=== PATIENT | male | born 1975 | race Caucasian/White ===

== ENCOUNTER 2016-09-22 11:50 | Emergency (ER) | payer MEDICARE ==
--- NOTE | ~2016-09-22 | ER ---
PATIENT'S NAME: GORAN [facility]PH [facility] AGE: 41 Y [address] ROOM: [place] [id number] LOCATION: ED ADMIT DATE: 09/22/2016 ER/Outpatient Report DISCHARGE DATE: 09/22/2016 FAMILY PHYSICIAN: Celestino Gr MD ATTENDING PHYSICIAN: Colleen Baron Time of Arrival: 1150 hours. Time of Evaluation: 1205 hours. CHIEF COMPLAINT: Near syncopal episodes when standing. HISTORY OF PRESENT ILLNESS: This is a 41-year-old male who presents to the ER, who states he has been having some near syncopal episodes for the past month or so. The patient states that when he stands up, he feels lightheaded and he feels like he will pass out at times. He has fallen down a few times, but he states he has never hit his head and he recalls all of the events fine. He states that he had been smoking marijuana and drinking alcohol, but he quit those last month; and states he started smoking some methamphetamines this month and ever since he started doing that he has had these episodes and he wants to figure out why he is having these episodes. He states he did smoke methamphetamines last night and he states the reason why he smokes is to put him in a "relaxed state." He denies any fever or chills. No cough. No shortness of breath. No chest pain. No lightheadedness. He states he had a normal stool this morning. He states he has a visit to see Dr. Gr on Monday. The patient states that he has been taking all of his seizure medications like he is supposed to. ALLERGIES: NO KNOWN ALLERGIES. MEDICATIONS: Please see medication list nurse's notes. PAST MEDICAL HISTORY: Epilepsy. SOCIAL HISTORY: He has been smoking methamphetamines this last month. He states he quit marijuana and alcohol this last month. REVIEW OF SYSTEMS: All systems reviewed and were negative with the exception of those discussed in the HPI. PATIENT'S NAME: GORAN [facility]SEPH [facility] AGE: 41 Y [address] ROOM: [place] [address] LOCATION: ED ADMIT DATE: 09/22/2016 ER/Outpatient Report DISCHARGE DATE: 09/22/2016 FAMILY PHYSICIAN: Celestino Gr MD ATTENDING PHYSICIAN: Colleen Baron PHYSICAL EXAMINATION: VITAL SIGNS: Weight 119 kg taken, blood pressure is 114/68, pulse 78, respirations 20, temperature 97 degrees tympanically, and saturations 96% on room air. Margarita Coma Score is 15. GENERAL: Alert, calm, well-developed male, in no acute distress. HEENT: Head: Normocephalic. Eyes: Pupils are and reactive to light. He does display moist mucous membranes. LUNGS: Clear to auscultation bilaterally. HEART: Regular rate and rhythm. ABDOMEN: Soft. It is nontender. He has good bowel sounds throughout. EXTREMITIES: No clubbing or cyanosis. He does have full range of motion of all limbs. MUSCULOSKELETAL: He has no tenderness with palpation over his cervical, thoracic, or lumbar spine. SKIN: Warm, dry, and intact. LABORATORY DATA AND X-RAYS: CBC: White count is 8.2, hemoglobin is 13.2, platelets are 348, and ANC is 4.6. CMS: Glucose is 104 and calcium 8.3, otherwise unremarkable. Urinalysis was negative for any infection. He is positive for benzodiazepine and positive for amphetamines. CT scan of his head was negative and reported by Radiology. IMPRESSION: 1. Near syncopal episodes. 2. Methamphetamine abuse. ASSESSMENT AND PLAN: We did monitor the patient here for quite some time. He remained comfortable during his entire stay. We did give him some IV fluids while he was here. I advised him to not smoke methamphetamines, not to drink alcohol or smoke marijuana. He needs to continue to push fluids, monitor his symptoms, and he needs to follow up with his primary care physician on Monday. The patient understands and agrees with care. BARNEY MATTHEWS PA-C FOR MD NESSA SEXTON/keith /[id number] d: t: 09/28/16 1359, OUTPATIENT REPORT
[~2016-09-22 11:50] MED LIST: CYMBALTA60 MG PO; KEPPRA1000 MG PO; KLONOPIN1 M1 PO; LAMICTAL XR200 MG PO; MYRBETRIQ50 MG PO; PROTONIX40 MG PO; RISPERDAL4 MG PO; TRANXENE T-TA3.75 MG PO; TYLENOL325 MG PO; VIMPAT200 MG PO
[2016-09-22 13:08] LABS: BASOPHIL # 0.1 K/uL (0.0-0.2); BASOPHIL % 0.7 %; EOSINOPHIL # 0.5 K/uL (0.0-0.5); EOSINOPHIL % 5.6 %; HEMATOCRIT 38.3 % (37.0-53.0); HEMOGLOBIN 13.2 g/dL (12.0-17.0); IMMATURE GRANULOCYTE % 0.1 %; LYMPHOCYTE # 2.4 K/uL (0.8-4.0); LYMPHOCYTE % 28.7 %; MCH 29.5 pg (27.0-34.0); MCHC 34.5 gm/dL (32.0-36.5); MCV 85.5 fl (83.0-98.0); MONOCYTE # 0.8 K/uL (0.0-1.0); MONOCYTE % 9.2 %; MPV 9.4 fl (9.4-12.4); NEUTROPHIL # (ANC) 4.6 K/uL (1.4-9.0); NEUTROPHIL % 55.7 %; NRBC % 0 /100WBC (0-0.00); PLATELET COUNT 348 K/uL (150-450); RBC 4.48 M/uL (4.00-6.00); RDW-CV 13.2 % (11.9-14.6); WBC 8.2 K/uL (4.0-11.0)
[2016-09-22 13:21] LABS: ALBUMIN 3.5 gm/dL (3.5-5.0); ALK PHOS 99 IU/L (33-138); ALT 22 IU/L (12-78); ANION GAP 10.7 (10.0-19.0); AST 16 IU/L (10-40); BLOOD UREA NITROGEN 9 mg/dL (6-24); CALCIUM 8.3 mg/dL (8.5-10.5); CHLORIDE 109 mMol/L (96-110); CO2 25 mMol/L (22-32); CREATININE 1.1 mg/dL (0.6-1.3); ESTIMATED GFR (MDRD EQUATION) > 60; POTASSIUM 3.7 mMol/L (3.7-5.1); SODIUM 141 mMol/L (135-145); TOTAL BILIRUBIN 0.6 mg/dL (0.0-1.5); TOTAL PROTEIN 7.2 g/dL (6.0-8.4)
[2016-09-22 14:00] LABS: BLOOD URINE NEGATIVE /UL (NEGATIVE); COLOR URINE YELLOW (YELLOW); GLUCOSE URINE NEGATIVE (NEGATIVE); KETONE URINE NEGATIVE (NEGATIVE); LEUKOCYTES URINE 25 /UL (NEGATIVE); NITRITE URINE NEGATIVE (NEGATIVE); PROTEIN URINE NEGATIVE (NEGATIVE); SPEC GRAVITY URINE 1.015 (1.003-1.035); TURBIDITY URINE CLEAR (CLEAR); UROBILINOGEN URINE 8 mg/dL (NORMAL)
[2016-09-22 14:09] LABS: BACTERIA URINE NEGATIVE (NEGATIVE); MUCUS URINE 2+ (NEGATIVE); RBC URINE NEGATIVE #/HPF (NEGATIVE)
[2016-09-22 14:20] LABS: BARBITURATE NEGATIVE (NEGATIVE); COCAINE NEGATIVE (NEGATIVE); OPIATES NEGATIVE (NEGATIVE)
[2016-09-22 14:21] LABS: AMPHETAMINE POSITIVE (NEGATIVE)
== END 2016-09-22 14:28 | disposition disaster alternative care site (69) ==
LOC: GMED 11:50
PROVIDERS: Physician Assistant Medical
DX: R55 Syncope and collapse (principal); F19.10 Other psychoactive substance abuse, uncomplicated; Z79.899 Other long term (current) drug therapy
CPT/HCPCS: 80299; J7030